=== PATIENT | female | born 1940 | race Caucasian/White ===

== ENCOUNTER → 2016-06-13 | Outpatient (CLI) | payer MEDICARE, BC ==
--- NOTE | 2016-06-13 12:31 | RADRPT ---
PROCEDURE: XR the left knee. CLINICAL INDICATION: Knee pain TECHNIQUE: The AP weightbearing, PA weightbearing, lateral weightbearing and sunrise views are james ilable for review. COMPARISON: None available FINDINGS: There is moderate osteoarthrosis involving the medial tibial femoral compartment and mild osteoarthr osis involving the lateral tibial femoral compartment and the patellofemoral compartment. This is as sociated with joint space narrowing, subchondral sclerosis and osteophytosis. There is otherwise normal mineralization, architecture and alignment. No fractures are identified. No osseous lesions are identified. The soft tissues are unremarkable. IMPRESSION: Moderate osteoarthrosis involving the medial tibial femoral compartment and mild osteoarthrosis invo lving the lateral tibial femoral compartment and the patellofemoral compartment. RPTAT: [facility] .Juvencio Lucero MD, Date Time Electronically viewed and signed by .Juvencio Lucero MD, on 06/13/2016 12:31 .B/
== END | disposition home or self-care (01) ==
LOC: HKI 11:04
PROVIDERS: ATTEND Orthopaedic Surgery
DX: M17.12 Unilateral primary osteoarthritis, left knee (principal); M25.562 Pain in left knee
CPT/HCPCS: 20610; 73564; G0463; J1030